=== PATIENT | female | born 1945 | race Caucasian/White ===

== ENCOUNTER 2017-08-04 11:12 | Day surgery (SDC) | payer OTHER ==
[2017-08-04] MEDS ORDERED: LIDOCAINE 1% 2 ML INJ ONE (11:48)
[2017-08-04] MEDS ORDERED: LR 1,000 ML IV ONE (12:04)
[2017-08-04] MEDS ORDERED: LIDOCAINE 1% 2 ML INJ ID PRN (12:04)
--- NOTE | 2017-08-04 12:06 | PDANEPAE ---
ANE History of Present Illness 71 year old female for colonoscopy. ANE Past Medical History - Cardiovascular History Hx Hypertension: Yes Hx Arrhythmias: No Hx Chest Pain: No Hx Coronary Artery / Peripheral Vascular Disease: No Hx CHF / Valvular Disease: No Hx Palpitations: No - Pulmonary History Hx COPD: No Hx Asthma/Reactive Airway Disease: No Hx Recent Upper Respiratory Infection: No Hx Oxygen in Use at Home: No Hx Sleep Apnea: No Sleep Apnea Screening Result - Last Documented: Negative - Neurologic History Hx Cerebrovascular Accident: No Hx Seizures: No Hx Dementia: No - Endocrine History Hx Diabetes: Yes Hypothyroid: No Hyperthyroid: No Obesity: mild Endocrine History Comment: TYPE II DM 2014 - Renal History Hx Renal Disorders: No - Liver History Hx Hepatic Disorders: No - Neurological & Psychiatric Hx Hx Neurological and Psychiatric Disorders: No - Cancer History Hx Cancer: No - Congenital Disorder History Hx Congenital Disorders: No - GI History GERD: mild Hx Gastrointestinal Disorders: Yes Gastrointestinal History Comment: GERD - Chronic Pain History Chronic Pain: Yes (neck arthritis) - Surgical History Prior Surgeries: CHOLECYSTECTOMY IN 1979 ANE Review of Systems Review of systems is: negative Review of Systems: - Exercise capacity Exercise capacity: >=4 METS METS (RN): 5 METS ANE Patient History - Allergies Allergies/Adverse Reactions: No Known Allergies Allergy (Unverified 09/27/16 10:47) - Home Medications Home medications: home medication list seen and reviewed Home Medications: Aspirin 81mg (*) 09/27/16 [Last Taken 07/21/17] Atorvastatin Calcium 09/27/16 [Last Taken 08/04/17 08:00] Losartan Potassium 09/27/16 [Last Taken 08/04/17 08:00] Metformin HCl 09/27/16 [Last Taken 08/03/17 16:00] Triamterene-Hctz 37.5-25 mg Cp 09/27/16 [Last Taken 08/03/17 09:00] Vitamin D3 (*) 09/27/16 [Last Taken 07/28/17] - NPO status NPO Status: no food or drink >8 hours NPO Since - Liquids (Date): 08/04/17 NPO Since - Liquids (Time): 09:00 NPO Since - Solids (Date): 08/03/17 NPO Since - Solids (Time): 10:00 - Anes Hx Anes Hx: no prior problems - Smoking Hx Smoking Status: Never smoked - Alcohol Use Alcohol Use: Rarely - Family Anes Hx Family Anes Hx: neg - N/A Family Hx Anesthesia Complications: none ANE Labs/Vital Signs - Vital Signs Vital Signs: reviewed preoperatively; see RN documention for details Blood Pressure: 140/85 Heart Rate: 74 Respiratory Rate: 16 O2 Sat (%): 95 Height: 154.94 cm Weight: 74.843 kg ANE Physical Exam - Airway Neck exam: FROM Mallampati Score: Class 2 Mouth exam: normal dental/mouth exam - Pulmonary Pulmonary: no respiratory distress - Cardiovascular Cardiovascular: regular rate and rhythym - ASA Status ASA Status: II ANE Anesthesia Plan Anesthesia Plan: GA with mask Total IV Anesthesia: Yes
[2017-08-04] MEDS ORDERED: PROPOFOL/EMULSION 500 MG/50 ML BOTTLE IV ONE (12:41)
[2017-08-04] MEDS ORDERED: LR 500 ML IV PRN (12:43)
[2017-08-04] MEDS ORDERED: ONDANSETRON 4 MG/2 ML VIAL IVP PRN (12:43)
[2017-08-04] MEDS ORDERED: NALOXONE HCL 0.4 MG/ML INJ IVP PRN (12:43)
[2017-08-04] MEDS ORDERED: fentaNYL 100 MCG/2 ML INJ IVP PRN (12:43)
--- NOTE | 2017-08-04 12:50 | PDGENHP ---
History & Physical Chief Complaint: cecal polyp History of Present Illness: 71 year for surveillance of cecal polyp Pertinent Past, Social, Family History: PMHx: Dm, high chol Relevant Physical Exam: HEENT: anicteric. Cv: RRR =s1s2. Lungs: CTAB. Abd; soft, nt, + bs Cardiorespiratory Assessment: ASA 2. Mall 2
[2017-08-04 13:22] VITALS: TEMP 97.7
--- NOTE | 2017-08-04 13:24 | GIREPORT ---
[facility] Surgical Services - Endoscopy Department Patient Name: Maddi Pack Procedure Date: 08/04/2017 12:35 PM Patient Type: Outpatient Attending / ALDEN Physician: Nelson Jay MD Procedure: Colonoscopy Indications: High risk colon cancer surveillance: Personal history of colonic polyps Patient Profile: 71 year old female with a personal history of complex poylps presents f or surveillance colonoscopy. Providers: Nelson Jay MD Medicines: Monitored Anesthesia Care Complications: No immediate complications. Estimated blood loss: Minimal. Description of Procedure: After obtaining informed consent, the scope was passed under direct vis ion. Throughout the procedure, the patient's blood pressure, pulse, and oxyg en saturations were monitored continuously. The Colonoscope with irrigatio n channel was introduced through the anus and advanced to the cecum, identified by appendiceal orifice and ileocecal valve. The entire colon was examined. The colonoscopy was performed without difficulty. The patient tolerated the procedure well. The quality of the bowel preparation was good. Findings: The perianal and digital rectal examinations were normal. Pertinent negatives include no palpabl e rectal lesions. A 4 mm polyp was found in the hepatic flexure. The polyp was sessile. The polyp was removed with a cold snare. Resection was complete, but the polyp tissue was not retrieved. Estimated Blood Loss: Estimated blood loss was minimal. Post Op Diagnosis: - One 4 mm polyp at the hepatic flexure, removed with a cold snare. Complete resection. Polyp ti ssue not retrieved. Recommendation: - Discharge patient to home (with escort). - Resume previous diet. - Continue present medications. - Repeat colonoscopy in 2 years for surveillance. - Await pathology results. - Thank you for allowing me to participate in the care of your patient. Attending Participation: I personally performed the entire procedure. Nelson Jay MD Nelson Jay MD 08/04/2017 1:24:35 PM Number of Addenda: 0 Note Initiated On: 08/04/2017 12:35 PM Total Procedure Duration Time 0 hours 14 minutes 7 seconds [email or web address]
[2017-08-04 13:58] VITALS: PULSE 80
[2017-08-04 14:28] VITALS: BP 145/71; RESP 16; O2SAT 97
--- NOTE | 2017-08-04 14:58 | POSTANESTH ---
Post Anesthetic Evaluation Cardiovascular Status: Normal, Stable, Similar to Pre-Op Cond Respiratory Status: Normal, Stable, Similar to Pre-op Cond. Level of Consciousness/Mental Status: Can Participate in Eval, Alert and Oriented Pain Control: Adequate, Prn Tx Ordered Nausea/Vomiting Control: Adequate, Prn Tx Ordered Complications Possibly Related to Anesthesia: None Noted
== END 2017-08-04 14:28 | disposition home or self-care (01) ==
LOC: FSGY 11:12
PROVIDERS: ATTEND Internal Medicine Gastroenterology
PROC: 0DBE8ZZ Excision of Large Intestine, Via Natural or Artificial Opening Endoscopic (ICD-10-PCS; principal; 2017-08-04 12:45)
DX: K63.5 Polyp of colon (principal)
CPT/HCPCS: J2704

== ENCOUNTER → 2018-03-06 | Outpatient (CLI) | payer OTHER | LOC: FIMAGING 13:45 | PROVIDERS: ATTEND Family Medicine Geriatric Medicine | DX: N95.0 Postmenopausal bleeding (principal); D25.9 Leiomyoma of uterus, unspecified; R93.41 Abnormal radiologic findings on diagnostic imaging of renal pelvis, ureter, or bladder ==

== ENCOUNTER 2019-05-07 16:27 | Observation (INO) | payer OTHER | END 2019-05-09 14:27 | disposition home or self-care (01) | LOC: F3N 22:13 ==